=== PATIENT | female | born 2000 | race Caucasian/White ===

== ENCOUNTER 2021-09-24 06:31 | Emergency (ER) | payer OTHER ==
[2021-09-24 07:21] LABS: BHCG - Serum Negative (NEGATIVE); Pregs Control Background? CLEAR/WHITE (CLR/WHITE); Pregs Control Bar Appear? YES (CONTROL BAR)
[2021-09-24 07:22] LABS: Bilirubin Neg (Negative); Blood, Urine 50 (Negative); Glucose, Urine (Dipstick) Normal (Negative); Ketone, Urine Negative (Negative); Leukocyte 500 (Negative); Nitrite Negative (Negative); Protein, Urine (Dipstick) 30 mg/dl (Neg-Trace); Specific Gravity, Urine 1.005 (1.002-1.036); Urobilinogen Normal mg/dL (Less than 2)
[2021-09-24 07:23] LABS: Clarity Hazy (Clear)
[2021-09-24] MEDS ORDERED: Morphine 4 MG/ML VIAL ONE (07:28)
[2021-09-24 07:31] LABS: Bacteria/HPF Rare-Few HPF (None Seen); RBC/HPF 0-3 HPF (0-3); Squamous Epithelial 0-3 HPF (0-3)
[2021-09-24] MEDS ORDERED: cefTRIAXone\\ROCEPHIN 1 GM VIAL ONE (09:10)
== END 2021-09-24 09:43 | disposition home or self-care (01) ==
LOC: CSHERS 06:31
DX: N39.0 Urinary tract infection, site not specified (principal)
CPT/HCPCS: 74176; 81003; 81015; 84703; 96365; 96375; J0696; J2270